=== PATIENT | male | born 1985 | race Caucasian/White ===

== ENCOUNTER 2017-10-26 10:48 | Emergency (ER) | payer BC ==
--- OUTSIDE RECORDS SUMMARY | 2017-10-26 10:50 | XMS REPORT | Clinical Summary ---
:1985 Author Organization [facility] Address [address] [place] [address] Phone Care Team Providers Name Role Phone Unavailable Primary Care Provider Unavailable Allergies No Known Allergies Current Medications No known medications Active Problems Problem Noted Date Peritonsillar abscess 09/02/2016 Social History Tobacco Use Types Packs/Day Years Used Date Never Smoker Alcohol Use Drinks/Week oz/Week Comments Yes 2 Standard drinks or equivalent 1.0 Sex Assigned at Date Recorded Not on file Last Filed Vital Signs Not on file Plan of Treatment Not on file Results Not on fileafter 10/25/2016
--- OUTSIDE RECORDS SUMMARY | 2017-10-26 10:50 | XMS REPORT ---
:1985 [facility] Address [address] [place] [address] [address] [place] [address] Care Team Providers Name Role Phone SAEID JARA Unavailable Unavailable Problems This patient has no known problems. Allergies, Adverse Reactions, Alerts This patient has no known allergies or adverse reactions. Medications This patient has no known medications. Results Test Description Test Time Test Comments Text Results Atomic Results Result Comments BASIC METABOLIC PANEL 2016-09-03 07:08:00 Test Item Value Reference Range Comments SODIUM (BEAKER) (test 137 meq/L 136-145 koxd=228) POTASSIUM (BEAKER) (test 4.0 meq/L 3.5-5.1 wktq=686) CHLORIDE (BEAKER) (test 108 meq/L 98-107 txqd=129) CO2 (BEAKER) (test 21 meq/L 22-29 ffui=173) BLOOD UREA NITROGEN 15 mg/dL 7-21 (BEAKER) (test tdjc=907) CREATININE (BEAKER) (test 0.65 mg/dL 0.57-1.25 zuqj=830) GLUCOSE RANDOM (BEAKER) 107 mg/dL 70-105 (test xzzk=705) CALCIUM (BEAKER) (test 8.5 mg/dL 8.4-10.2 owxx=112) EGFR (BEAKER) (test 145 mL/min/1.73 sq m ESTIMATED GFR IS NOT bmvo=9752) ACCURATE CREATININE CLEARANCE IN PREDICTING GLOMERULAR FILTRATION RATE. ESTIMATED GFR IS NOT APPLICABLE FOR DIALYSIS PATIENTS. HEMOGLOBIN [id number] 10:20:00 Test Item Value Reference Range Comments HEMOGLOBIN A1C (BEAKER) (test wtfi=793) 4.8 % 4.3-6.1 CBC W/PLT COUNT & AUTO [id number] 10:07:00 Test Item Value Reference Range Comments WHITE BLOOD CELL COUNT (BEAKER) (test byqr=724) 18.8 K/ L 4.0-10.0 RED BLOOD CELL COUNT (BEAKER) (test pnmh=236) 5.00 M/ L 4.20-5.80 HEMOGLOBIN (BEAKER) (test fans=172) 15.2 GM/DL 13.0-16.8 HEMATOCRIT (BEAKER) (test itxn=976) 43.6 % 40.0-50.0 MEAN CORPUSCULAR VOLUME (BEAKER) (test adqz=446) 87.3 fL 82.0-98.0 MEAN CORPUSCULAR HEMOGLOBIN (BEAKER) (test 30.4 pg 27.0-33.0 htkk=139) MEAN CORPUSCULAR HEMOGLOBIN CONC (BEAKER) (test 34.9 GM/DL 32.0-36.0 jdrt=483) RED CELL DISTRIBUTION WIDTH (BEAKER) (test 12.8 % 10.3-14.2 axmm=432) PLATELET COUNT (BEAKER) (test mzqa=957) 233 K/CU MM 150-430 MEAN PLATELET VOLUME (BEAKER) (test tesa=031) 7.4 fL 6.5-10.5 NUCLEATED RED BLOOD CELLS (BEAKER) (test 0 /100 WBC 0-0 izvp=925) NEUTROPHILS RELATIVE PERCENT (BEAKER) (test 93 % ugeq=303) LYMPHOCYTES RELATIVE PERCENT (BEAKER) (test 5 % wrsn=024) MONOCYTES RELATIVE PERCENT (BEAKER) (test 1 % kaqk=568) EOSINOPHILS RELATIVE PERCENT (BEAKER) (test 0 % obtg=723) BASOPHILS RELATIVE PERCENT (BEAKER) (test 0 % auqy=341) NEUTROPHILS ABSOLUTE COUNT (BEAKER) (test 17.50 K/ L 1.80-8.00 fhye=284) LYMPHOCYTES ABSOLUTE COUNT (BEAKER) (test 0.96 K/ L 1.48-4.50 pwjn=747) MONOCYTES ABSOLUTE COUNT (BEAKER) (test 0.23 K/ L 0.00-1.30 rwuq=376) EOSINOPHILS ABSOLUTE COUNT (BEAKER) (test 0.03 K/ L 0.00-0.50 nuyq=068) BASOPHILS ABSOLUTE COUNT (BEAKER) (test 0.01 K/ L 0.00-0.20 vqgy=550) 0.000.570.000.000.000.000.000.000.00(MANUAL DIFFERENTIAL)2016-09-02 10:07:00 Test Item Value Reference Range Comments TOTAL COUNTED (BEAKER) (test uiky=1574) BASIC METABOLIC [id number] 06:45:00 Test Item Value Reference Range Comments SODIUM (BEAKER) (test 137 meq/L 136-145 gmvx=491) POTASSIUM (BEAKER) (test 3.9 meq/L 3.5-5.1 vrjt=892) CHLORIDE (BEAKER) (test 105 meq/L 98-107 saut=261) CO2 (BEAKER) (test 20 meq/L 22-29 nolz=667) BLOOD UREA NITROGEN 14 mg/dL 7-21 (BEAKER) (test uvci=157) CREATININE (BEAKER) (test 0.66 mg/dL 0.57-1.25 yqsx=275) GLUCOSE RANDOM (BEAKER) 142 mg/dL 70-105 (test qufh=210) CALCIUM (BEAKER) (test 9.3 mg/dL 8.4-10.2 lmox=095) EGFR (BEAKER) (test 143 mL/min/1.73 sq m ESTIMATED GFR IS NOT rmee=0446) ACCURATE CREATININE CLEARANCE IN PREDICTING GLOMERULAR FILTRATION RATE. ESTIMATED GFR IS NOT APPLICABLE FOR DIALYSIS PATIENTS.
--- NOTE | 2017-10-26 11:42 | ER ---
Nurse's Notes [facility] Name: Tacho Tay Age: 32 yrs Sex: Male : 1985 Arrival Date: 10/26/2017 Time: 10:48 Bed 10 Private MD: Diagnosis: Pain in right leg Presentation: 10/26 10:54 Presenting complaint: Patient states: I think I tore something in my RLE playing la1 softball on Friday. Pt states pain in calf. Transition of care: patient was not received from another setting of care. Onset of symptoms was October 26, 2017. Initial Sepsis Screen: Does the patient meet any 2 criteria? No. Patient's initial sepsis screen is negative. Does the patient have a suspected source of infection? No. Patient's initial sepsis screen is negative. Care prior to arrival: None. 10:54 Method Of Arrival: Wheelchair la1 10:54 Acuity: MATTY 4 la1 Historical: - Allergies: 10:55 No Known Allergies; la1 - PMHx: 10:55 None; la1 - PSHx: 10:55 None; la1 - Immunization history:: Adult Immunizations up to date. - Social history:: Smoking status: Patient/guardian denies using tobacco. Screenin:57 Abuse screen: Denies threats or abuse. Nutritional screening: On. Nutritional la1 screening: No deficits noted. Tuberculosis screening: No symptoms or risk factors identified. Fall Risk None identified. Assessment: 10:57 General: Appears in no apparent distress. Behavior is calm, cooperative. Pain: la1 Complains of pain in right calf. Neuro: Level of Consciousness is awake, alert, obeys commands, Oriented to person, place, time, situation. Cardiovascular: Capillary refill < 3 seconds. Musculoskeletal: Circulation, motion, and sensation intact. Capillary refill < 3 seconds, Range of motion: intact in all extremities. Vital Signs: 10:55 BP 120 / 88; Pulse 70; Resp 16; Temp 98.7; Pulse Ox 100% on R/A; Weight 102.06 kg; la1 Height 6 ft. 4 in. (193.04 cm); 10:55 Body Mass Index 27.39 (102.06 kg, 193.04 cm) la1 ED Course: 10:48 Patient arrived in ED. as 10:55 Triage completed. la1 10:55 Arm band placed on left wrist. la1 10:56 Konrad Trejo PA is PHCP. jr8 10:56 Antonio Fraga MD is Attending Physician. jr8 10:57 Bed in low position. Call light in reach. la1 10:58 No provider procedures requiring assistance completed. Patient did not have IV access la1 during this emergency room visit. 11:14 Daniela Dial, RN is Primary Nurse. ss 11:24 Orthoglass splint: Posterior short lleg splint applied on right leg. applied a eb posterior right leg splint per dr orders. used 32 inchs of 5 inch orthoglass, used two rolls of 4 inch cast padding, used 3 rolls 4 inch elsa wraps, cms intact pre at post splint applications, pt tolerated well with no complaints or discomfort at this time. in room at bedside. 11:42 Pan Harrison MD is Referral Physician. jr8 Administered Medications: No medications were administered Outcome: 11:42 Discharge ordered by . jr8 11:46 Discharged to home with crutches, with significant other. ss 11:46 Condition: good 11:46 Discharge instructions given to patient, family, Instructed on discharge instructions, follow up and referral plans. medication usage, Demonstrated understanding of instructions, follow-up care, medications, Prescriptions given X 1. 11:46 Patient left the ED. ss Signatures: Melanie Triana as Daniela Dial, RN MARY Konrad Trejo PA PA jr8 Harry Ochoa RN RN la1 Marlen Mendiola
--- NOTE | 2017-10-26 11:42 | EDPHYS ---
Physician Documentation [facility] Name: Tacho Tay Age: 32 yrs Sex: Male : 1985 Arrival Date: 10/26/2017 Time: 10:48 Bed 10 Private MD: ED Physician Antonio Fraga HPI: 10/26 11:37 This 32 yrs old Male presents to ER via Wheelchair with complaints of Leg jr8 Pain. 11:37 The patient presents with decreased range of motion, pain. The complaints affect the jr8 right calf. Context: The problem was sustained outdoors, at a sports field or court, resulted from playing sports, baseball, the patient can partially bear weight, must have assistance. Onset: The symptoms/episode began/occurred acutely. Modifying factors: The symptoms are alleviated by nothing. the symptoms are aggravated by movement, weight bearing. Associated signs and symptoms: The patient has no apparent associated signs or symptoms. Severity of symptoms: At their worst the symptoms were mild, in the emergency department the symptoms are unchanged. The patient has not experienced similar symptoms in the past. The patient has not recently seen a physician. Patient stated that he was playing softball and was taking off to run. [place] tear like sensation in right calf. Since then has had pain with decreased ROM . Historical: - Allergies: 10:55 No Known Allergies; la1 - PMHx: 10:55 None; la1 - PSHx: 10:55 None; la1 - Immunization history:: Adult Immunizations up to date. - Social history:: Smoking status: Patient/guardian denies using tobacco. ROS: 11:37 Eyes: Negative for injury, pain, redness, and discharge, ENT: Negative for injury, jr8 pain, and discharge, Neck: Negative for injury, pain, and swelling, Cardiovascular: Negative for chest pain, palpitations, and edema, Respiratory: Negative for shortness of breath, cough, wheezing, and pleuritic chest pain, Abdomen/GI: Negative for abdominal pain, nausea, vomiting, diarrhea, and constipation, Back: Negative for injury and pain, Skin: Negative for injury, rash, and discoloration, Neuro: Negative for headache, weakness, numbness, tingling, and seizure. 11:37 MS/extremity: Positive for decreased range of motion, pain, tenderness, of the right calf. Exam: 11:37 Cardiovascular: Regular rate and rhythm with a normal S1 and S2. No gallops, murmurs, jr8 or rubs. Normal PMI, no JVD. No pulse deficits. Respiratory: Lungs have equal breath sounds bilaterally, clear to auscultation and percussion. No rales, rhonchi or wheezes noted. No increased work of breathing, no retractions or nasal flaring. Back: No spinal tenderness. No costovertebral tenderness. Full range of motion. Skin: Warm, dry with normal turgor. Normal color with no rashes, no lesions, and no evidence of cellulitis. Neuro: Awake and alert, GCS 15, oriented to person, place, time, and situation. Cranial nerves II-XII grossly intact. Motor strength 5/5 in all extremities. Sensory grossly intact. Cerebellar exam normal. Normal gait. 11:37 Musculoskeletal/extremity: Extremities: grossly normal except: noted in the right calf: pain, tenderness, Negative for bruising, swelling, abrasions, lacerations. Tender to medial part of calf. Negative Soliman's test. Pain with ROM but with full ROM , Circulation is intact in all extremities. Sensation intact. Vital Signs: 10:55 BP 120 / 88; Pulse 70; Resp 16; Temp 98.7; Pulse Ox 100% on R/A; Weight 102.06 kg; la1 Height 6 ft. 4 in. (193.04 cm); 10:55 Body Mass Index 27.39 (102.06 kg, 193.04 cm) la1 Procedures: 11:37 Splinting: Splint applied to right leg using Orthoglass splint, applied by tech. jr8 Examined by me, post splint application: neurovascular intact, 2+ distal pulses palpable, brisk capillary refill noted, Patient tolerated well. Crutch training provided to patient and/or family. Return demonstration given. MDM: 10:56 Patient medically screened. jr8 11:37 Data reviewed: vital signs, nurses notes, and as a result, I will discharge patient. jr8 Data interpreted: Pulse oximetry: on room air is 100 %. Interpretation: normal. Counseling: I had a detailed discussion with the patient and/or guardian regarding: the historical points, exam findings, and any diagnostic results supporting the discharge/admit diagnosis, the need for outpatient follow up, a orthopedic surgeon, to return to the emergency department if symptoms worsen or persist or if there are any questions or concerns that arise at home. ED course: Discussed with patient that he needs MRI and ortho f/u. Leave splint on and no weight bearing until instructed otherwise by orthopedic surgeon . 10/26 11:07 Order name: Posterior Leg Splint; Complete Time: :23 jr8 10/26 11:07 Order name: Crutches; Complete Time: 11:44 jr8 Administered Medications: No medications were administered Disposition: 10/27 09:19 Co-signature as Attending Physician, Antonio Fraga MD I agree with the assessment and [place] plan of care. Disposition: 10/26/17 11:42 Discharged to Home. Impression: Pain in right leg. - Condition is Stable. - Discharge Instructions: Musculoskeletal Pain. - Prescriptions for Ibuprofen 800 mg Oral Tablet - take 1 tablet by ORAL route every 12 hours As needed take with food; 20 tablet. - Medication Reconciliation Form, Thank You Letter, Antibiotic Education, Prescription Opioid Use form. - Follow up: Pan Harrison MD; When: 2 - 3 days; Reason: Recheck today's complaints, Continuance of care, Re-evaluation by your physician. - Problem is new. - Symptoms have improved. Signatures: Antonio Fraga MD MD cha Smirch, Shelby, Konrad Kurtz RN, PA PA jr8 Harry Ochoa RN RN la1
== END 2017-10-26 11:46 | disposition home or self-care (01) ==
LOC: ER 10:48
DX: M79.661 Pain in right lower leg (principal)
CPT/HCPCS: 99283

== ENCOUNTER 2022-05-13 20:08 | Emergency (ER) | payer SELFPAY ==
--- OUTSIDE RECORDS SUMMARY | 2022-05-13 20:13 | XMS REPORT | Continuity of Care Document ---
:1985 Author Organization [facility] t Address [address] [place] [address] Care Team Providers Name Role Phone Sharpless Primary Care Physician ROSETTA JARA Attending Clinician Unavailable TIM UNGER Admitting Clinician Unavailable Problems Condition Condition Condition Status Onset Resolution Last Treating Co mments Source Name Details Category Date Date Treatment Clinician Date Peritonsil Peritonsil Disease Active C [facility] Allergies, Adverse Reactions, Alerts This patient has no known allergies or adverse reactions. Social History Social Habit Start Date Stop Date Quantity Comments Source Alcohol intake 2016-09-02 2016-09-02 Current drinker [facility] 00:[facility]:00 of [facility] (finding) Sex Assigned At [birth year] M[facility] kes [facility] Smoking Status Start Date Stop Date Source Never smoker [facility] Medications This patient has no known medications. Procedures This patient has no known procedures. Results Test Description Test Time Test Comments Results Result Comments Source BASIC METABOLIC PANEL 2016-09-03 07:08:00 Test Item Value Reference Range Interpretation Comme nts SODIUM (BEAKER) (test code 137 meq/L 136-145 = 381) POTASSIUM (BEAKER) (test 4.0 meq/L 3.5-5.1 code = 379) CHLORIDE (BEAKER) (test 108 meq/L 98-107 H code = 382) CO2 (BEAKER) (test code = 21 meq/L 22-29 L 355) BLOOD UREA NITROGEN 15 mg/dL 7-21 (BEAKER) (test code = 354) CREATININE (BEAKER) (test 0.65 mg/dL 0.57-1.25 code = 358) GLUCOSE RANDOM (BEAKER) 107 mg/dL 70-105 H (test code = 652) CALCIUM (BEAKER) (test 8.5 mg/dL 8.4-10.2 code = 697) EGFR (BEAKER) (test code = 145 mL/min/1.73 sq m ESTIMATED GFR IS NOT 1092) ACCURATE CRE ATININE CLEARANCE IN [place] EDICTING GLOMERULAR FILT RATION RATE. ESTIMATED GFR IS NOT APPLICABLE FOR DIALYSIS PATIENTS. HEMOGLOBIN [id number] 10:20:00 Test Item Value Reference Range Interpretation Comments HEMOGLOBIN A1C (BEAKER) (test code = 4.8 % 4.3-6.1 368) CBC W/PLT COUNT & AUTO [id number] 10:07:00 Test Item Value Reference Range Interpretation Comments WHITE BLOOD CELL COUNT (BEAKER) 18.8 K/ L 4.0-10.0 H (test code = 775) RED BLOOD CELL COUNT (BEAKER) 5.00 M/ L 4.20-5.80 (test code = 761) HEMOGLOBIN (BEAKER) (test code = 15.2 GM/DL 13.0-16.8 410) HEMATOCRIT (BEAKER) (test code = 43.6 % 40.0-50.0 411) MEAN CORPUSCULAR VOLUME (BEAKER) 87.3 fL 82.0-98.0 (test code = 753) MEAN CORPUSCULAR HEMOGLOBIN 30.4 pg 27.0-33.0 (BEAKER) (test code = 751) MEAN CORPUSCULAR HEMOGLOBIN CONC 34.9 GM/DL 32.0-36.0 (BEAKER) (test code = 752) RED CELL DISTRIBUTION WIDTH 12.8 % 10.3-14.2 (BEAKER) (test code = 412) PLATELET COUNT (BEAKER) (test 233 K/CU MM 150-430 code = 756) MEAN PLATELET VOLUME (BEAKER) 7.4 fL 6.5-10.5 (test code = 754) NUCLEATED RED BLOOD CELLS 0 /100 WBC 0-0 (BEAKER) (test code = 413) NEUTROPHILS RELATIVE PERCENT 93 % (BEAKER) (test code = 429) LYMPHOCYTES RELATIVE PERCENT 5 % (BEAKER) (test code = 430) MONOCYTES RELATIVE PERCENT 1 % (BEAKER) (test code = 431) EOSINOPHILS RELATIVE PERCENT 0 % (BEAKER) (test code = 432) BASOPHILS RELATIVE PERCENT 0 % (BEAKER) (test code = 437) NEUTROPHILS ABSOLUTE COUNT 17.50 K/ L 1.80-8.00 H (BEAKER) (test code = 670) LYMPHOCYTES ABSOLUTE COUNT 0.96 K/ L 1.48-4.50 L (BEAKER) (test code = 414) MONOCYTES ABSOLUTE COUNT (BEAKER) 0.23 K/ L 0.00-1.30 (test code = 415) EOSINOPHILS ABSOLUTE COUNT 0.03 K/ L 0.00-0.50 (BEAKER) (test code = 416) BASOPHILS ABSOLUTE COUNT (BEAKER) 0.01 K/ L 0.00-0.20 (test code = 417) 0.000.570.000.000.000.000.000.000.00(MANUAL DIFFERENTIAL)2016-09-02 10:07:00 Test Item Value Reference Range Interpretation Comments TOTAL COUNTED (BEAKER) (test code = 1351) BASIC METABOLIC [id number] 06:45:00 Test Item Value Reference Range Interpretation Comments SODIUM (BEAKER) 137 meq/L 136-145 (test code = 381) POTASSIUM (BEAKER) 3.9 meq/L 3.5-5.1 (test code = 379) CHLORIDE (BEAKER) 105 meq/L 98-107 (test code = 382) CO2 (BEAKER) (test 20 meq/L 22-29 L code = 355) BLOOD UREA NITROGEN 14 mg/dL 7-21 (BEAKER) (test code = 354) CREATININE (BEAKER) 0.66 mg/dL 0.57-1.25 (test code = 358) GLUCOSE RANDOM 142 mg/dL 70-105 H (BEAKER) (test code = 652) CALCIUM (BEAKER) 9.3 mg/dL 8.4-10.2 (test code = 697) EGFR (BEAKER) (test 143 mL/min/1.73 ESTIM ATED GFR IS code = 1092) sq m NOT ACCURATE CREATININE CLEARANCE IN PREDICTING GLOMERULAR FILTRATION RATE . ESTIMATED GFR I S NOT APPLICABLE FOR DIALYSIS PATIEN TS.
--- NOTE | 2022-05-13 21:44 | EDPHYS ---
Physician Documentation [facility] Name: Tacho Tay Age: 37 yrs Sex: Male : 1985 Arrival Date: 05/13/2022 Time: 20:11 Bed DIS3 Private MD: ED Physician Vibha Sanderson HPI: 05/13 20:36 This 37 yrs old Male presents to ER via Ambulatory with complaints of Sore Throat. kb 20:36 The patient presents with sore throat. The patient describes throat pain as constant. kb Onset: The symptoms/episode began/occurred 4 day(s) ago. Severity of symptoms: At their worst the symptoms were moderate, in the emergency department the symptoms are unchanged. Modifying factors: The symptoms are alleviated by nothing, the symptoms are aggravated by swallowing, Patient's oral intake status: good. Associated signs and symptoms: Pertinent positives: cough, fever, Sore throat. The patient has not experienced similar symptoms in the past. The patient has not recently seen a physician. Historical: - Allergies: 20:34 No Known Allergies; ld1 - Home Meds: 20:34 None [Active]; ld1 - PMHx: 20:34 None; ld1 - PSHx: 20:34 None; ld1 - Immunization history:: Adult Immunizations up to date, Client reports having NOT received the Covid vaccine. - Social history:: Smoking status: Reported history of juuling and/or vaping. Patient/guardian denies using alcohol. ROS: 20:35 Cardiovascular: Negative for chest pain, palpitations, and edema. kb 20:35 Constitutional: Positive for fever. 20:35 ENT: Positive for sinus congestion, sore throat. 20:35 Respiratory: Positive for cough. 20:35 All other systems are negative. Exam: 20:35 Constitutional: This is a well developed, well nourished patient who is awake, alert, kb and in no acute distress. Head/Face: Normocephalic, atraumatic. Cardiovascular: Regular rate and rhythm with a normal S1 and S2. No gallops, murmurs, or rubs. No pulse deficits. Respiratory: Respirations even and unlabored. No increased work of breathing. Talking in full sentences Abdomen/GI: Soft, non-tender. No distention Skin: Warm, dry with normal turgor. Normal color. MS/ Extremity: Pulses equal, no cyanosis. Neurovascular intact. Full, normal range of motion. Neuro: Awake and alert, GCS 15, oriented to person, place, time, and situation. Moves all extremities. Normal gait. Psych: Awake, alert, with orientation to person, place and time. Behavior, mood, and affect are within normal limits. 20:35 ENT: Posterior pharynx: Tonsils: bilaterally enlarged, with erythema, with exudate, swelling, that is mild, erythema, that is moderate, exudate, that is mild. 20:35 Neck: Lymph nodes: lymphadenopathy is appreciated, anterior cervical nodes. Vital Signs: 20:32 BP 132 / 79; Pulse 102; Resp 18; Temp 98.6(TE); Pulse Ox 99% on R/A; Weight 104.33 kg; ld1 Height 6 ft. 4 in. (193.04 cm); Pain 0/10; 20:32 Body Mass Index 28.00 (104.33 kg, 193.04 cm) ld1 MDM: 20:31 Patient medically screened. kb 20:35 Data reviewed: vital signs, nurses notes. Data interpreted: Pulse oximetry: on room air kb is 99 %. Interpretation: normal. 21:39 Counseling: I had a detailed discussion with the patient and/or guardian regarding: the kb historical points, exam findings, and any diagnostic results supporting the discharge/admit diagnosis, lab results, the need for outpatient follow up, a family practitioner, to return to the emergency department if symptoms worsen or persist or if there are any questions or concerns that arise at home. 05/13 20:35 Order name: Strep; Complete Time: 21:43 kb 05/13 20:35 Order name: Flu; Complete Time: 21:42 kb 05/13 21:45 Order name: Throat Culture EDMS Administered Medications: 21:50 Drug: Augmentin (Amoxicillin-Clavulanate) 875 mg Route: PO; jb4 22:11 Follow up: Response: Medication administered at discharge. jb4 Disposition Summary: 05/13/22 21:43 Discharge Ordered Location: Home kb Condition: Stable kb Diagnosis - Acute tonsillitis, unspecified kb Followup: kb - With: Emergency Department - When: As needed - Reason: Worsening of condition Followup: kb - With: Private Physician - When: 2 - 3 days - Reason: Recheck today's complaints, Continuance of care, Re-evaluation by your physician Discharge Instructions: - Discharge Summary Sheet kb - Tonsillitis, [id number] kb Forms: - Medication Reconciliation Form kb - Thank You Letter kb - Antibiotic Education kb - Prescription Opioid Use kb Prescriptions: - Augmentin 875-125 mg Oral Tablet - take 1 tablet by ORAL route every 12 hours for 10 days; 20 tablet; Refills: 0, kb Product Selection Permitted Signatures: Dispatcher [employer] EDLuz Elena May, ULYSSES-C ULYSSES-Ace Romano, RN RN jb4 Peg Tariq RN RN ld1
--- NOTE | 2022-05-13 21:44 | ER ---
Nurse's Notes [facility] Name: Tacho Tay Age: 37 yrs Sex: Male : 1985 Arrival Date: 05/13/2022 Time: 20:11 Bed DIS3 Private MD: Diagnosis: Acute tonsillitis, unspecified Presentation: 05/13 20:32 Chief complaint: Patient states: Sore throat, cough, congestion, fever since Friday. ld1 Coronavirus screen: At this time, the client does not indicate any symptoms associated with coronavirus-19. Ebola Screen: No symptoms or risks identified at this time. Initial Sepsis Screen: Does the patient meet any 2 criteria? No. Patient's initial sepsis screen is negative. Does the patient have a suspected source of infection? No. Patient's initial sepsis screen is negative. Risk Assessment: Do you want to hurt yourself or someone else? Patient reports no desire to harm self or others. Onset of symptoms was May 13, 2022 at 20:34. 20:32 Method Of Arrival: Ambulatory ld1 20:32 Acuity: MATTY 4 ld1 Triage Assessment: 20:34 General: Appears in no apparent distress. comfortable, Behavior is calm, cooperative, ld1 appropriate for age. Pain: Denies pain. EENT: Throat is pink Reports nasal congestion. Neuro: Level of Consciousness is awake, alert, obeys commands, Oriented to person, place, time, situation, Appropriate for age. Cardiovascular: Capillary refill < 3 seconds Patient's skin is warm and dry. Respiratory: Airway is patent Respiratory effort is even, unlabored. GI: Abdomen is flat, non-distended. : No signs and/or symptoms were reported regarding the genitourinary system. Derm: No signs and/or symptoms reported regarding the dermatologic system. Musculoskeletal: No signs and/or symptoms reported regarding the musculoskeletal system. 20:34 Respiratory: Reports cough that is non-productive. ld1 Historical: - Allergies: 20:34 No Known Allergies; ld1 - Home Meds: 20:34 None [Active]; ld1 - PMHx: 20:34 None; ld1 - PSHx: 20:34 None; ld1 - Immunization history:: Adult Immunizations up to date, Client reports having NOT received the Covid vaccine. - Social history:: Smoking status: Reported history of juuling and/or vaping. Patient/guardian denies using alcohol. Screenin:50 Abuse screen: Denies threats or abuse. Nutritional screening: No deficits noted. jb4 Tuberculosis screening: No symptoms or risk factors identified. Fall Risk None identified. Assessment: 21:50 Reassessment: Patient appears in no apparent distress at this time. Patient and/or jb4 family updated on plan of care and expected duration. Pain level reassessed. Patient is alert, oriented x 3, equal unlabored respirations, skin warm/dry/pink. Vital Signs: 20:32 BP 132 / 79; Pulse 102; Resp 18; Temp 98.6(TE); Pulse Ox 99% on R/A; Weight 104.33 kg; ld1 Height 6 ft. 4 in. (193.04 cm); Pain 0/10; 20:32 Body Mass Index 28.00 (104.33 kg, 193.04 cm) ld1 ED Course: 20:11 Patient arrived in ED. dt4 20:29 Luz Elena Wilson FNP-C is [facility]. kb 20:29 Vibha Sanderson MD is Attending Physician. kb 20:34 Triage completed. ld1 20:34 Arm band placed on right wrist. ld1 20:41 Strep Sent. ld1 20:41 Flu Sent. ld1 21:50 No provider procedures requiring assistance completed. Patient did not have IV access jb4 during this emergency room visit. Administered Medications: 21:50 Drug: Augmentin (Amoxicillin-Clavulanate) 875 mg Route: PO; jb4 22:11 Follow up: Response: Medication administered at discharge. jb4 Medication: 21:50 VIS not applicable for this client. jb4 Outcome: 21:43 Discharge ordered by . kb 21:50 Discharged to home ambulatory. jb4 21:50 Condition: stable 21:50 Discharge instructions given to patient, Instructed on discharge instructions, follow up and referral plans. medication usage, Demonstrated understanding of instructions, follow-up care, medications, Prescriptions given X 1. 22:12 Patient left the ED. jb4 Signatures: Luz Elena Wilson FNP-C FNP-Ckb Bryson, James, RN RN jb4 Peg Tariq RN RN ld1 Cari Solano dt4
[2022-05-13] MEDS ORDERED: AMOX/K CLAV 875 MG TAB ONE (21:51)
[2022-05-13 23:31] VITALS: BP 132/79; TEMP 98.6; O2SAT 99
== END 2022-05-13 22:12 | disposition home or self-care (01) ==
LOC: ER 20:08
DX: J03.90 Acute tonsillitis, unspecified (principal)
CPT/HCPCS: 87070; 87081; 87804; 99283

== ENCOUNTER 2024-06-18 17:51 | Emergency (ER) | payer OTHER, SELFPAY ==
[2024-06-18] MEDS ORDERED: NA CHLORIDE 0.9% 1,000 ML ONE (18:08)
[2024-06-18] MEDS ORDERED: LORazepam 2 MG/ML VIAL ONE (18:08)
[2024-06-18 18:43] LABS: Absolute Basophils 0.1 K/uL (0-0.5); Absolute Eosinophils 0.3 K/uL (0-0.5); Absolute Lymphocytes (CBC) 3.5 K/uL (0.7-4.9); Absolute Monocytes 0.7 K/uL (0.1-1.3); Absolute Neutrophil 7.1 K/uL (1.8-8.0); Basophils % 0.5 % (0-1.3); Eosinophils % 2.6 % (0-4.4); Hematocrit 46.3 % (39.6-49.0); Hemoglobin 15.6 g/dL (13.6-17.9); Lymphocytes % 29.9 % (15.3-44.8); MCHC 33.6 g/dL (32.0-36.0); MPV 8.4 fL (7.6-11.3); Monocytes % 6.4 % (3.3-12.3); Neutrophils % 60.6 % (41.7-73.7); Nucleated Red Blood Cells % 0.2 % (0-0); Platelets 321 thou/uL (152-406)
[2024-06-18 18:44] LABS: PT Prothrombin Time 12.5 SECONDS (9.4-12.5); Protime INR 1.12
[2024-06-18 18:45] LABS: D-Dimer < 0.215 FEUug/mL (0-0.500)
[2024-06-18 18:46] LABS: Albumin 4.2 g/dL (3.4-5.0); Albumin/Globulin Ratio 1.2 (1.1-1.8); Anion Gap 8.8 mEq/L (5.0-15.0); Bilirubin Direct 0.2 mg/dL (0-0.2); Bilirubin Indirect, Calculated 0.6 mg/dL (0.2-0.8); Bilirubin Total 0.8 mg/dL (0.2-1.0); Globulin 3.6 g/dL (2.3-3.5); Magnesium 1.9 mg/dL (1.6-2.4); Potassium 2.8 mEq/L (3.5-5.1); Protein, Total 7.8 g/dL (6.4-8.2); Troponin High Sensitivity 5.4 pg/mL (<58.9)
--- NOTE | 2024-06-18 18:48 | RAD REPORT ---
EXAM: Chest Single View HISTORY: PALPITATIONS COMPARISON: None. FINDINGS: LUNGS/PLEURA: The lungs are clear. No pleural effusions or pneumothorax. No pulmonary edema. MEDIASTINUM: The mediastinal silhouette is within normal limits. CARDIAC: The cardiac silhouette is within normal limits. UPPER ABDOMEN: No significant abnormality. BONES: No acute fracture. LINES/TUBES/OTHER: N/A IMPRESSION: No evidence of acute cardiopulmonary disease.
[2024-06-18] MEDS ORDERED: POTASSIUM CL SA 10 MEQ TAB PO ONE (19:12)
--- NOTE | 2024-06-18 19:18 | RAD REPORT ---
EXAMINATION: CTA CHEST PE CLINICAL INDICATION: Male, 39 years old. DYSPNEA TECHNIQUE: This examination was performed according to an angiographic protocol with 3D post-processi ng. This involves 3D reconstructions, MIPs, volume rendered images and/or shaded surface rendering. One or more of the following dose reduction techniques were used: Automated exposure control, adjustm ent of the mA and/or kV according to patient size, and/or iterative reconstruction. Unless otherwise specified, incidental findings do not require dedicated imaging follow-up. [id number]. COMPARISON: No prior exam. FINDINGS: LOWER NECK: Visualized thyroid gland and soft tissues are normal. LUNGS AND AIRWAYS: Motion limited. No evidence of edema or pneumonia. PLEURA: No pleural effusion. No pneumothorax. Hemidiaphragms are normally positioned. MEDIASTINUM AND LYMPH NODES: No mediastinal mass or fluid collection. Normal size mediastinal, hilar, and axillary lymph nodes. THORACIC AORTA: Normal caliber and configuration. PULMONARY ARTERIES: Significantly limited despite repeating the CT and reinjection of contrast. There is significant motion artifact. The segmental and subsegmental pulmonary arteries are not well evaluated. HEART: Normal heart size. No pericardial effusion. No coronary calcifications. OSSEOUS STRUCTURES AND CHEST WALL: Intact. UPPER ABDOMEN: No significant abnormalities. Hepatic steatosis. IMPRESSION: Examination is limited despite repeat of the CT and reinjection of contrast due to motion artifact. T he segmental and subsegmental pulmonary arteries cannot be evaluated. No central pulmonary embolus. A clinically significant pulmonary embolus is considered unlikely. No ultimate acute process identifi ed.
[2024-06-18 20:15] LABS: Barbiturates NEGATIVE (NEGATIVE); Benzodiazepines NEGATIVE (NEGATIVE); Cocaine NEGATIVE (NEGATIVE); METHAMPHETAM NEGATIVE (NEGATIVE); Methadone NEGATIVE (NEGATIVE); Opiates NEGATIVE (NEGATIVE); Phencyclidine NEGATIVE (NEGATIVE); THC Cannibis POSITIVE (NEGATIVE)
--- NOTE | 2024-06-18 20:25 | EDPHYS ---
Physician Documentation [facility] Name: Tacho Tay Age: 39 yrs Sex: Male : 1985 Arrival Date: 06/18/2024 Time: 17:51 Bed 18 Private MD: ED Physician Antonio Fraga HPI: 06/18 18:39 This 39 yrs old Male presents to ER via Wheelchair with complaints of Fast heart rate. 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 Denies chest pain. . Historical: - Allergies: 18:21 No Known Allergies; kc6 - Home Meds: 18:21 None [Active]; kc6 - PMHx: 18:21 None; kc6 - PSHx: 18:21 None; kc6 - Immunization history:: Adult Immunizations up to date. - Infectious Disease History:: Denies. - Social history:: Smoking status: Patient denies any tobacco usage or history of. ROS: 18:39 Constitutional: As per HPI kb Exam: 18:33 ECG was reviewed by the Attending Physician. kb 18:39 Head/Face: Normocephalic, atraumatic. ENT: Moist Mucous membranes Respiratory: kb Respirations even and unlabored. No increased work of breathing. Talking in full sentences Abdomen/GI: Soft, non-tender. No distention Skin: Warm, dry with normal turgor. Normal color. MS/ Extremity: Pulses equal, no cyanosis. Neurovascular intact. Full, normal range of motion. Neuro: Awake and alert, GCS 15, oriented to person, place, time, and situation. 18:39 Constitutional: The patient appears alert, awake, anxious, 18:39 Cardiovascular: Rate: tachycardic, Rhythm: regular, Vital Signs: 18:19 BP 151 / 90; Pulse 119; Resp 25 S; Pulse Ox 97% on R/A; Weight 113.4 kg (R); Height 6 kc6 ft. 4 in. (R); 19:17 BP 121 / 77; Pulse 123; Resp 20; Temp 98.8; Pulse Ox 99% ; Pain 0/10; bm8 20:52 BP 122 / 68; Pulse 114; Resp 18; Pulse Ox 95% on R/A; ay 18:19 Body Mass Index 30.43 (113.40 kg, 193.04 cm) kc6 19:17 Pain Scale: Adult bm8 Nneka Coma Score: 19:17 Eye Response: spontaneous(4). Motor Response: obeys commands(6). Verbal Response: bm8 oriented(5). Total: 15. MDM: 17:57 Medical Screening Exam initiated kb 17:58 Medical Screening Exam initiated kb 20:22 Differential diagnosis: PE, arrhythmia, anxiety, drug reaction. Data reviewed: vital kb signs, nurses notes. Consideration of Admission/Observation Escalation of care including admission/observation considered. Historians other than the Patient: Spouse/Significant Other: . Counseling: I had a detailed discussion with the patient and/or guardian regarding the historical points, exam findings, and any diagnostic results supporting the discharge/admit diagnosis, lab results, radiology results, the need for outpatient follow up. ED course: Pt states he is feeling better. States he spoke with a coworker and they said the brownies at a work holiday alliance party may have had drugs in them. Pt educated on all diagnostic results. States he has not ingested/inhaled THC. Offered to obs pt overnight. Pt states he prefers to go home because he is much better. . 06/18 18:10 Order name: Basic Metabolic Panel; Complete Time: 18:48 kb 06/18 18:10 Order name: CBC with Diff; Complete Time: 18:48 kb 06/18 18:10 Order name: D-Dimer; Complete Time: 18:48 kb 06/18 18:10 Order name: LFT's; Complete Time: 18:48 kb 06/18 18:10 Order name: Magnesium; Complete Time: 18:48 kb 06/18 18:10 Order name: NT PRO-BNP; Complete Time: 18:48 kb 06/18 18:10 Order name: PT-INR; Complete Time: 18:48 kb 06/18 18:10 Order name: Troponin HS; Complete Time: 18:48 kb 06/18 18:16 Order name: UDS; Complete Time: 20:16 kb 06/18 18:24 Order name: TSH; Complete Time: 19:07 kb 06/18 18:10 Order name: XRAY Chest (1 view); Complete Time: 18:48 kb 06/18 18:10 Order name: CT Chest For PE Angio; Complete Time: 19:26 kb 06/18 18:10 Order name: Cardiac monitoring; Complete Time: 18:16 kb 06/18 18:10 Order name: EKG - Nurse/Tech; Complete Time: 18:16 kb 06/18 18:10 Order name: IV Saline Lock; Complete Time: 18:16 kb 06/18 18:10 Order name: Labs collected and sent; Complete Time: 18:16 kb 06/18 18:10 Order name: O2 Per Protocol; Complete Time: 18:16 kb 06/18 18:10 Order name: O2 Sat Monitoring; Complete Time: 18:16 kb EC:33 Rate is 128 beats/min. Rhythm is regular. QRS Ramah is Normal. AR interval is normal at kb 164 msec. QRS interval is normal at 94 msec. QT interval is normal at 429 msec. Administered Medications: 18:16 Drug: NS 0.9% IV 1000 ml IV at 1000 ml once; to be given as a bolus over 60 minutes kc6 Route: IV; Rate: 1000 ml; Site: right antecubital; 20:51 Follow up: Response: Adverse reaction, Physician notified; IV Status: Completed ay infusion; IV Intake: 1000ml 18:16 Drug: Ativan IVP 1 mg IVP once Route: IVP; Site: right antecubital; kc6 19:11 Follow up: Response: No adverse reaction; Anxiety decreased; RASS: Alert and Calm (0) kc6 19:17 Drug: Potassium Chloride PO 40 mEq PO once Route: PO; bm8 20:53 Follow up: Response: No adverse reaction ay Disposition Summary: 06/18/24 20:24 Discharge Ordered Notes: Location: Home kb Condition: Stable kb Diagnosis - Palpitations kb - Drug ingestion kb Followup: kb - With: Emergency Department - When: As needed - Reason: Worsening of condition Followup: kb - With: Private Physician - When: 2 - 3 days - Reason: Recheck today's complaints, Continuance of care, Re-evaluation by your physician Discharge Instructions: - Discharge Summary Sheet kb - Panic Attack, Orfl-rk-[id number] kb - Palpitations, Imer-op-Euky kb - Illegal Drug Use Information, Adult kb Forms: - Medication Reconciliation Form kb - Antibiotic Education kb - Prescription Opioid Use kb - Patient Portal Instructions kb - Leadership Thank You Letter kb Signatures: Dispatcher [employer] EDMS Luz Elena Wilson, ULYSSES-C ULYSSES-Kati Sosa, RN RN kc6 Atif Mccain RN RN bm8 Ida Bacon RN ay Corrections: (The following items were deleted from the chart) 18:11 18:10 Chest For PE Angio+CT.RAD.BRZ ordered. EDMS EDMS
--- NOTE | 2024-06-18 20:25 | ER ---
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 Coronavirus screen: At this time, the client does not indicate any symptoms associated with coronavirus-19. Ebola Screen: No symptoms or risks identified at this time. Initial Sepsis Screen: Does the patient meet any 2 criteria? RR > 20 per min. HR > 90 bpm. Does the patient have a suspected source of infection? No. Patient's initial sepsis screen is negative. Risk Assessment: Do you want to hurt yourself or someone else? Patient reports no desire to harm self or others. Onset of symptoms was June 18, 2024. 18:19 Method Of Arrival: Wheelchair kc6 18:19 Acuity: MATTY 2 kc6 Historical: - Allergies: 18:21 No Known Allergies; kc6 - Home Meds: 18:21 None [Active]; kc6 - PMHx: 18:21 None; kc6 - PSHx: 18:21 None; kc6 - Immunization history:: Adult Immunizations up to date. - Infectious Disease History:: Denies. - Social history:: Smoking status: Patient denies any tobacco usage or history of. Screenin:21 [facility] ED Fall Risk Assessment (Adult) History of falling in the last 3 months, kc6 including since admission No falls in past 3 months (0 pts) Confusion or Disorientation No (0 pts) Intoxicated or Sedated No (0 pts) Impaired Gait No (0 pts) Mobility Assist Device Used No (0 pt) Altered Elimination No (0 pt) Score/Fall Risk Level 0 - 2 = Low Risk Oriented to surroundings, Maintained a safe environment, Educated pt \T\ family on fall prevention, incl call for assistance when getting out of bed. Abuse screen: Denies threats or abuse. Denies injuries from another. Nutritional screening: No deficits noted. Tuberculosis screening: No symptoms or risk factors identified. Assessment: 18:22 General: Appears in no apparent distress. uncomfortable, well groomed, well developed, kc6 Behavior is cooperative, anxious, restless. Pain: Denies pain. Neuro: Level of Consciousness is awake, alert, obeys commands, Oriented to person, place, time, situation, Appropriate for age. Cardiovascular: Reports palpitations, Denies chest pain, Heart tones S1 S2 present Capillary refill < 3 seconds Rhythm is sinus tachycardia. Respiratory: Reports shortness of breath at rest on exertion Airway is patent Trachea midline Respiratory effort is even, unlabored, Respiratory pattern is regular, symmetrical, hyperventilation. GI: No signs and/or symptoms were reported involving the gastrointestinal system. : No signs and/or symptoms were reported regarding the genitourinary system. EENT: No signs and/or symptoms were reported regarding the EENT system. Derm: No signs and/or symptoms reported regarding the dermatologic system. Skin is intact, is healthy with good turgor, Skin is dry, Skin is dusky, Skin temperature is warm. Musculoskeletal: No signs and/or symptoms reported regarding the musculoskeletal system. Circulation, motion, and sensation intact. Capillary refill < 3 seconds, Range of motion: intact in all extremities. 19:17 Reassessment: Patient appears in no apparent distress at this time. Patient and/or bm8 family updated on plan of care and expected duration. Pain level reassessed. Patient is alert, oriented x 3, equal unlabored respirations, skin warm/dry/pink. Patient states feeling better. Patient states symptoms have improved. Cardiovascular: Reports palpitations, shortness of breath, Heart tones S1 S2 present Capillary refill < 3 seconds in bilateral fingers Rhythm is sinus tachycardia. Respiratory: Reports shortness of breath Airway is patent Trachea midline Respiratory effort is even, unlabored, Respiratory pattern is regular, symmetrical, Breath sounds are clear bilaterally. 19:17 Neuro: No deficits noted. Level of Consciousness is awake, alert, obeys commands, bm8 Oriented to person, place, time, situation, Appropriate for age. Vital Signs: 18:19 BP 151 / 90; Pulse 119; Resp 25 S; Pulse Ox 97% on R/A; Weight 113.4 kg (R); Height 6 kc6 ft. 4 in. (R); 19:17 BP 121 / 77; Pulse 123; Resp 20; Temp 98.8; Pulse Ox 99% ; Pain 0/10; bm8 20:52 BP 122 / 68; Pulse 114; Resp 18; Pulse Ox 95% on R/A; ay 18:19 Body Mass Index 30.43 (113.40 kg, 193.04 cm) kc6 19:17 Pain Scale: Adult bm8 Nneka Coma Score: 19:17 Eye Response: spontaneous(4). Motor Response: obeys commands(6). Verbal Response: bm8 oriented(5). Total: 15. ED Course: 17:53 Patient arrived in ED. ra3 17:57 Luz Elena Wilson FNP-C is [facility]. kb 17:57 Antonio Fraga MD is Attending Physician. kb 18:16 Kati Salas RN is Primary Nurse. kc6 18:21 Triage completed. kc6 18:21 Arm band placed on. EKG completed in triage. Results shown to MD. kc6 18:21 Patient has correct armband on for positive identification. Placed in gown. Bed in low kc6 position. Call light in reach. Side rails up X 1. Adult w/ patient. monitoring engineer on. Pulse ox on. NIBP on. Door closed. Noise minimized. Lights dimmed. Pillow given. 18:21 Inserted saline lock: 18 gauge in right antecubital area, using aseptic technique. kc6 Blood collected. Flushed with 10 mL NS. Patient maintains SpO2 saturation greater than 95% on room air. 18:28 XRAY Chest (1 view) In Process Unspecified. EDMS 19:01 CT Chest For PE Angio In Process Unspecified. EDMS 19:10 Report given to MARY Srivastava. [facility] 19:17 No provider procedures requiring assistance completed. Patient maintains SpO2 bm8 saturation greater than 95% on room air. 20:47 Provided Education on: plan of care. ay 20:47 IV discontinued, intact, bleeding controlled, No redness/swelling at site. Pressure ay dressing applied. Administered Medications: 18:16 Drug: NS 0.9% IV 1000 ml IV at 1000 ml once; to be given as a bolus over 60 minutes kc6 Route: IV; Rate: 1000 ml; Site: right antecubital; 20:51 Follow up: Response: Adverse reaction, Physician notified; IV Status: Completed ay infusion; IV Intake: 1000ml 18:16 Drug: Ativan IVP 1 mg IVP once Route: IVP; Site: right antecubital; kc6 19:11 Follow up: Response: No adverse reaction; Anxiety decreased; RASS: Alert and Calm (0) kc6 19:17 Drug: Potassium Chloride PO 40 mEq PO once Route: PO; bm8 20:53 Follow up: Response: No adverse reaction ay Medication: 19:17 VIS not applicable for this client. bm8 Intake: 20:51 IV: 1000ml; Total: 1000ml. ay Outcome: 20:24 Discharge ordered by MD. daigle 20:47 Discharged to home ambulatory, ay 20:47 Condition: stable 20:47 Discharge instructions given to patient, Instructed on discharge instructions, follow up and referral plans. 20:49 Patient left the ED. ay Signatures: Dispatcher [employer] EDLuz Elena May, DAVID ARORA-Kati Sosa, RN RN kc6 Chary Campa ra3 Atif Mccain, RN RN bm8 Ida Bacon RN RN ay
[2024-06-18 20:57] VITALS: BP 121/77; TEMP 98.8; O2SAT 99
== END 2024-06-18 20:49 | disposition home or self-care (01) ==
LOC: ER 17:51
DX: R00.2 Palpitations (principal); T50.901A Poisoning by unspecified drugs, medicaments and biological substances, accidental (unintentional), initial encounter
CPT/HCPCS: 96361; 85025; 80048; 36415; 83735; 85610; 85379; 80076; 84443; 84484; 83880; 80307; 71275; 71045; 96374; 99285; Q9967; J7030

== ENCOUNTER 2024-09-18 09:56 | Emergency (ER) | payer BC, OTHER ==
--- NOTE | 2024-09-18 10:44 | RAD REPORT ---
EXAMINATION: CT ABDOMEN AND PELVIS WITHOUT CONTRAST CLINICAL INDICATION: reduced L femoral hernia TECHNIQUE: CT abdomen and pelvis was performed, without IV contrast, as per department protocol. Axia l, sagittal and coronal reconstructions were obtained. One or more of the following dose reduction techniques were used: Automated exposure control, adjustment of the mA and kV according to the patien t size, and iterative reconstruction. Unless otherwise specified, incidental findings do not require dedicated imaging follow-up. COMPARISON: No prior exam. FINDINGS: The lack of intravenous contrast limits the sensitivity of this exam for evaluation of solid visceral organs, vascular structures, and retroperitoneum. LOWER CHEST: The visualized lung bases are clear. LIVER:Normal in size and contour. No focal lesion. Grossly unremarkable gallbladder. SPLEEN: Normal size. No focal lesion. PANCREAS: No mass, ductal dilation, or fatou-pancreatic fluid. ADRENALS: Normal; no mass. KIDNEYS AND URETERS: Horseshoe kidney. Punctate calculus present on the right without hydronephrosis. URINARY BLADDER: Normal contour. GASTROINTESTINAL TRACT: No evidence of bowel obstruction, significant free fluid, free air or abscess . APPENDIX: Normal appendix. LYMPH NODES: No lymphadenopathy. MUSCULOSKELETAL: Mild lower lumbar spondylosis. ADDITIONAL FINDINGS: Moderate fat-containing left inguinal hernia. IMPRESSION: Moderate fat-containing left inguinal hernia. No evidence of incarceration. Horseshoe kidney.
--- NOTE | 2024-09-18 10:56 | EDPHYS ---
Physician Documentation [facility] – [place], [place] Name: Tacho Tay Age: 39 yrs Sex: Male : 1985 Arrival Date: 09/18/2024 Time: 09:56 Bed 7 Private MD: ED Physician Kevin Leavitt HPI: 09/18 10:35 This 39 yrs old Male presents to ER via Ambulatory with complaints of Groin Pain. rt 10:35 Patient presents to the ED with intermittent pain and swelling to the left groin for rt the past several months. States that they occur about every other day and then improves on its own. Denies abdominal pain, nausea, vomiting, acute complaints, symptoms are mild in severity, no other aggravating or alleviating factors. Historical: - Allergies: 10: NKDA; le1 - PMHx: 10:09 None; le1 - PSHx: 10:09 None; le1 - Immunization history:: Adult Immunizations up to date. - Infectious Disease History:: Denies. - Social history:: Smoking status: Patient denies any tobacco usage or history of. Patient uses alcohol, admits to "couple of beers" a day. - Family history:: not pertinent. ROS: 10:35 Constitutional: Negative for fever, chills, and weight loss, Cardiovascular: Negative rt for chest pain, palpitations, and edema, Respiratory: Negative for shortness of breath, cough, wheezing, and pleuritic chest pain, MS/Extremity: Negative for injury and deformity, Skin: Negative for injury, rash, and discoloration, Neuro: Negative for headache, weakness, numbness, tingling, and seizure, 10:35 Abdomen/GI: Negative for abdominal pain, nausea and vomiting, Exam: 10:35 Constitutional: This is a well developed, well nourished patient who is awake, alert, rt and in no acute distress. Head/Face: Normocephalic, atraumatic. Chest/axilla: Normal chest wall appearance and motion. Nontender with no deformity. No lesions are appreciated. Cardiovascular: Regular rate and rhythm with a normal S1 and S2. No gallops, murmurs, or rubs. Normal PMI, no JVD. No pulse deficits. Respiratory: Lungs have equal breath sounds bilaterally, clear to auscultation and percussion. No rales, rhonchi or wheezes noted. No increased work of breathing, no retractions or nasal flaring. Skin: Warm, dry with normal turgor. Normal color with no rashes, no lesions, and no evidence of cellulitis. MS/ Extremity: Pulses equal, no cyanosis. Neurovascular intact. Full, normal range of motion. Neuro: Awake and alert, GCS 15, oriented to person, place, time, and situation. Cranial nerves II-XII grossly intact. Motor strength 5/5 in all extremities. Sensory grossly intact. Cerebellar exam normal. Normal gait. 10:35 Abdomen/GI: Easily reducible left inguinal hernia present, no abdominal tenderness, distention, Vital Signs: 10:07 BP 148 / 87; Pulse 67; Resp 16; Temp 98.9(O); Pulse Ox 98% on R/A; Pain 6/10; le1 11:21 BP 119 / 75; Pulse 83; Resp 16; Temp 98.9(O); Pulse Ox 95% on R/A; Pain 3/10; le1 10:07 Pain Scale: Adult le1 11:21 Pain Scale: Adult le1 MDM: 10:09 Medical Screening Exam initiated rt 11:08 Differential Diagnosis Reducible hernia, incarcerated hernia. Data reviewed: vital rt signs, nurses notes, radiologic studies. Independent interpretation of the following test(s) in the Emergency Department CT Scan: My interpretation is No bowel obstruction seen on interpretation of CT scan images. Counseling: I had a detailed discussion with the patient and/or guardian regarding the historical points, exam findings, and any diagnostic results supporting the discharge/admit diagnosis, radiology results, the need for outpatient follow up. Response to treatment: the patient's symptoms have markedly improved after treatment. ED course: Patient with easily reducible hernia, significantly improving with reduction. Patient has a fat-containing hernia on CT scan that was performed after reduction. No further interventions are indicated emergently. Patient was instructed to follow-up with general surgery for repair of hernia.. 09/18 10:18 Order name: CT Abd/Pelvis - Without Contrast; Complete Time: 10:48 rt Administered Medications: No medications were administered Disposition Summary: 09/18/24 10:55 Discharge Ordered Notes: Location: Home rt Problem: an ongoing problem rt Symptoms: have improved rt Condition: Stable rt Diagnosis - Unilateral inguinal hernia, without obstruction or gangrene rt Followup: rt - With: Humberto Prieto MD - When: 2 - 3 days - Reason: Followup: rt - With: Fabricio Hoang MD - When: 2 - 3 days - Reason: Followup: rt - With: Jonny Triana MD - When: 2 - 3 days - Reason: Followup: rt - With: Ace Vasquez MD - When: 2 - 3 days - Reason: Discharge Instructions: - Discharge Summary Sheet rt - Inguinal Hernia, Adult rt Forms: - Medication Reconciliation Form rt - Antibiotic Education rt - Prescription Opioid Use rt - Patient Portal Instructions rt - Leadership Thank You Letter rt Signatures: Dispatcher [employer] EDMS Kevin Leavitt MD MD rt Lexis Walter RN RN le1 Corrections: (The following items were deleted from the chart) 10:18 10:18 Abdomen Pelvis Wo [id number] ordered. EDUT EDMS
--- NOTE | 2024-09-18 10:56 | ER ---
Nurse's Notes [facility] Name: Tacho Tay Age: 39 yrs Sex: Male : 1985 Arrival Date: 09/18/2024 Time: 09:56 Bed 7 Private MD: Diagnosis: Unilateral inguinal hernia, without obstruction or gangrene Presentation: 09/18 10:07 Chief complaint: Patient states: Patient states he has been having L side groin le1 swelling and pain since June. Swelling and pain goes away but comes back periodically. Coronavirus screen: Vaccine status: Patient reports being unvaccinated. Client denies travel out of the [place] in the last 14 days. At this time, the client does not indicate any symptoms associated with coronavirus-19. Ebola Screen: Patient negative for fever greater than or equal to 101.5 degrees Fahrenheit, and additional compatible Ebola Virus Disease symptoms Patient denies exposure to infectious person. Patient denies travel to an Ebola-affected area in the 21 days before illness onset. No symptoms or risks identified at this time. Initial Sepsis Screen: Does the patient meet any 2 criteria? No. Patient's initial sepsis screen is negative. Does the patient have a suspected source of infection? No. Patient's initial sepsis screen is negative. Risk Assessment: Do you want to hurt yourself or someone else? Patient reports no desire to harm self or others. Onset of symptoms was June 2024. 10:07 Method Of Arrival: Ambulatory le1 10:07 Acuity: MATTY 4 le1 Triage Assessment: 10:10 General: Appears in no apparent distress. comfortable, Behavior is calm, cooperative, le1 appropriate for age. Pain: Complains of pain in left femoral area and left inguinal area. Historical: - Allergies: 10:09 NKDA; le1 - PMHx: 10:09 None; le1 - PSHx: 10:09 None; le1 - Immunization history:: Adult Immunizations up to date. - Infectious Disease History:: Denies. - Social history:: Smoking status: Patient denies any tobacco usage or history of. Patient uses alcohol, admits to "couple of beers" a day. - Family history:: not pertinent. Screenin:11 [facility] ED Fall Risk Assessment (Adult) History of falling in the last 3 months, le1 including since admission No falls in past 3 months (0 pts) Confusion or Disorientation No (0 pts) Intoxicated or Sedated No (0 pts) Impaired Gait No (0 pts) Mobility Assist Device Used No (0 pt) Altered Elimination No (0 pt) Score/Fall Risk Level 0 - 2 = Low Risk Oriented to surroundings, Maintained a safe environment, Educated pt \\T\\ family on fall prevention, incl call for assistance when getting out of bed, Assessed \\T\\ reinforced patient's understanding of fall precautions, Hourly rounding (assess needs \\T\\ fall precautionary measures) done, Used ambulatory aids as needed (educated on \\T\\ assisted with). Abuse screen: Denies threats or abuse. Denies injuries from another. Nutritional screening: No deficits noted. Tuberculosis screening: No symptoms or risk factors identified. Assessment: 10:10 General: Appears in no apparent distress. comfortable, Behavior is calm, cooperative, le1 appropriate for age. Pain: Complains of pain in left femoral area and left inguinal area Pain currently is 6 out of 10 on a pain scale. Neuro: No deficits noted. Cardiovascular: No deficits noted. Respiratory: No deficits noted. GI: No deficits noted. : No deficits noted. EENT: No deficits noted. Musculoskeletal: No deficits noted. Vital Signs: 10:07 BP 148 / 87; Pulse 67; Resp 16; Temp 98.9(O); Pulse Ox 98% on R/A; Pain 6/10; le1 11:21 BP 119 / 75; Pulse 83; Resp 16; Temp 98.9(O); Pulse Ox 95% on R/A; Pain 3/10; le1 10:07 Pain Scale: Adult le1 11:21 Pain Scale: Adult le1 ED Course: 10:00 Patient arrived in ED. sj2 10:01 Leixs Walter RN is Primary Nurse. le1 10:01 Kevin Leavitt MD is Attending Physician. rt 10:09 Triage completed. le1 10:10 Arm band placed on right wrist. le1 10:11 Patient has correct armband on for positive identification. Placed in gown. Bed in low le1 position. Call light in reach. Side rails up X 1. Provided Education on: Informed patient to use call light as needed. 10:[address] via wheelchair. le1 10:33 CT Abd/Pelvis - Without Contrast In Process Unspecified. EDMS 10:54 Humberto Prieto MD is Referral Physician. rt 10:54 Fabricio Hoang MD is Referral Physician. rt 10:54 Jonny Triana MD is Referral Physician. rt 10:55 Ace Vasquez MD is Referral Physician. rt Administered Medications: No medications were administered Outcome: :55 Discharge ordered by MD. rt 11:25 Patient left the ED. le1 Signatures: Dispatcher [employer] EDMS Kevin Leavitt MD MD rt Lexis Walter, RN RN le1 Declan Donaldson sj2
[2024-09-18 11:29] VITALS: TEMP 98.9
[2024-09-18 11:31] VITALS: BP 119/75; O2SAT 95
== END 2024-09-18 11:25 | disposition home or self-care (01) ==
LOC: ER 09:56
DX: K40.90 Unilateral inguinal hernia, without obstruction or gangrene, not specified as recurrent (principal)
CPT/HCPCS: 74176; 99284